=== PATIENT | male | born 1985 | race Caucasian/White ===

== ENCOUNTER 2017-11-10 19:11 | Inpatient (IN) ==
--- NOTE | 2017-11-10 19:39 | Emergency Department Note ---
Disposition Clinical Impression: Metabolic acidosis, Hyperphosphatemia, Hyponatremia Infected decubitus ulcer Qualifiers: Pressure ulcer stage: unspecified pressure ulcer stage Qualified Code(s): L89.90 - Pressure ulcer of unspecified site, unspecified stage Sepsis Qualifiers: Sepsis type: sepsis due to unspecified organism Qualified Code(s): A41.9 - Sepsis, unspecified organism Leukocytosis Qualifiers: Leukocytosis type: unspecified Qualified Code(s): D72.829 - Elevated white blood cell count, unspecified Osteomyelitis Qualifiers: Osteomyelitis type: unspecified type Osteomyelitis location: unspecified site Qualified Code(s): M86.9 - Osteomyelitis, unspecified Anemia Qualifiers: Anemia type: unspecified type Qualified Code(s): D64.9 - Anemia, unspecified Urinary tract infection Qualifiers: Urinary tract infection type: site unspecified Hematuria presence: without hematuria Qualified Code(s): N39.0 - Urinary tract infection, site not specified Malnutrition Qualifiers: Malnutrition type: unspecified type Qualified Code(s): E46 - Unspecified protein-calorie malnutrition Hypotension Qualifiers: Hypotension type: unspecified hypotension type Qualified Code(s): I95.9 - Hypotension, unspecified Disposition: Admitted As Inpatient Condition: Fair Referrals: NONE,PCP [Primary Care Provider] - Time of Disposition: 21:34 General Adult HPI - General Time Seen by Provider: 11/10/17 19:12 Source: family (), EMS Mode of arrival: EMS Limitations: altered mental status Nursing Notes Reviewed: Yes Vital Signs Reviewed: Yes - History of Present Illness HPI Narrative: 32-year-old male history of quadriplegia and CVA presents emergency department via EMS for confusion and abdominal wounds. 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 Denies any fevers at home. Denies any recent illness. He follows with Dr. Claudia edmonds at [facility] in [facility]. He is not been hospitalized recently. He is currently seeking multiple pain management doctors. He reports that patient's been unable to get a appropriate bed is currently he is on the bed without springs and it is very hard. On arrival here patient is alert and oriented only to self. Initially on arrival the patient refused to allow myself and medical staff to evaluate him. Reports by EMS he has significant bed wounds likely secondary to his immobility in history of paralysis. Shortly after his arrived. States that the wounds have been overwhelming. She does not have any home health assistance. Reports that he has been incontinent and has noticed urine coming out of his scrotum. He has extensive abdominal wounds with pus drainage and some necrotic tissue concerning for overwhelming wound infection. Patient has decreased sensation to is abdominal area. He is afebrile on examination. Tachycardic 120. Blood pressure is systolic 90 to 100. Patients very ill and will initiate septic workup with 2 large bore IV and likely central line placement. - Related Data Previous Rx's Medication Instructions Recorded Sulfamethoxazole/Trimeth DS 1 each PO BID #20 tablet 06/23/17 [Bactrim DS] Allergies Allergy/AdvReac Type Severity Reaction Status Date / Time sertraline [From Zoloft] Allergy See Verified 03/26/16 22:06 Comments All systems ED: reviewed and negative except as stated. Review of Systems: As Per HPI Constitutional: Reports: weakness, weight change. Denies: fever, chills ENT ED: Denies: congestion Cardiovascular: Denies: chest pain Respiratory: Denies: dyspnea Gastrointestinal: Reports: abdominal pain Past Medical History - Past Medical History Attestation: Yes The following information was validated with the patient. Source: old records reviewed, obtained from family Medical history: Reports: arthritis, myocardial infarction Surgical history: Reports: orthopedic, other, pacemaker/AICD Psychiatric history: Reports: anxiety, bipolar, depression, PTSD, other - Social History Smoking Status: Current every day smoker Smokeless Tobacco Status: No Alcohol use: Reports: none Drug use: Reports: none Physical Exam - General Limitations: altered mental status General appearance: alert, in no apparent distress, cachectic, other ( significant muscle wasting) - Head Head exam: atraumatic, normocephalic, normal inspection - Eye Eye exam: Present: normal appearance, PERRL, EOMI - ENT ENT exam: normal exam, normal oropharynx, mucous membranes dry, other (dry lips , pallor) - Expanded ENT Exam Teeth exam: Present: other (poor dentition) - Chest Chest inspection: Present: normal inspection, symmetric chest wall rise. Absent : tenderness - Respiratory Respiratory exam: Present: normal lung sounds bilaterally. Absent: respiratory distress - Cardiovascular Cardiovascular exam: Present: normal rhythm, tachycardia, normal heart sounds - Abdominal Exam Abdominal exam: Present: soft, tenderness (diffuse), other (extensive wounds to abdominal wall) - Extremities Exam Extremities exam: Present: other (muscle wasting, no heel ulceration, multiple ulcers to bony prominences ). Absent: tenderness - Back Exam Back exam: Present: other (multiple wound ) - Neurological Exam Neurological exam: Present: alert - Skin Skin exam: Present: erythema - Expanded Skin Exam Distribution: abdomen, genitals Description: Present: erythematous, crusting, discharge (purulent), fluctuant 1 - purulent drainage with necrotic tissue, no obvious crepitus but with deep palpation pus is expressed from skin 2 - DECUBITUS ULCER, EXPOSED BONE 3 - EXTENSIVE SACRAL DECUBITUS ULCER 4 - LARGE DECUBITUS ULCER OF RIGHT HIP EXPOSED MUSCLE TO MID THIGH 5 - MULTIPLE DECUBITUS ULCERS OF THE MEDIAL/LATERAL KNEES 6 - DECUBITUS PRESSURE ULCERS OF BILAT SCAPULA Course - Reevaluation(s) Reevaluation #1: Patient and continues to be hesitant on allowing us to evaluate him and treat him. Patient is very ill and this has been made apparent to both the patient and that he is critically ill. He is hypotensive and likely septic. He initially refused evaluation but since I am a male he allowed me to evaluate him with females outside of the room. He has extensive wounds with some crepitus and pus drainage to abdominal wall that extends down to the groin area. He is refusing machado catheter placement as well as additional IV access for resuscitative measures. He currently has a 20gauge IV in the left forearm. I discussed code status with the patient is as well as the and they have stated they do not want aggressive resuscitative measures such as CPR or intubation. He has been told by multiple physicians at [facility] that if he had CPR his chest would collapse and he has required tracheostomy as well. Patient is in agreement with this plan. He is currently receiving IV fluid through his left forearm IV and we will attempt to get additional IV access in a Machado catheter if the patient is not refusing. Patient's initially requested for him to be transferred to [facility] at this time they would prefer to stay here if possible. Time: 19:48 Reevaluation #2: Review of his labs he has a leukocytosis of 20. Hemoglobin 6.6. Will type and screen and transfused 2 units. His sodium is low. He has been fluid responsive to normal saline bolus 3 L now his systolic is up to 120. He has refused a central line. He is acidotic but abnormal lactate 1.2. We are able to place a Machado catheter in and send urinalysis. Urinalysis is consistent with urinary tract infection. We had extensive skin examination by fully exposing him he has multiple decubitus ulcers with concerns for osteomyelitis. He has bone exposed to his bilateral hips. He has extensive sacral decubitus ulcer as well as to the bilateral scapula and the performed mentioned abdominal wound. The Aliya gave us consent to obtain photographic images of the wounds. We have obtained appropriate cultures of most of the wounds with images and measurements. Patient will require extensive wound care as well as admission. He is appropriate for step down unit. We have covered him with broad-spectrum antibiotics vancomycin and Zosyn. Will obtain transfusion consent form. After code status discussion will have them sign a do not resuscitate comfort care arrest do not intubate form after our discussion. Impression is possible osteomyelitis, multiple decubitus ulcers, sepsis secondary to skin infection, urinary tract infection, anemia. Reevaluation #3: Given his extensive wounds will treated similar to burn patient. Patient is 45 kg and calculated likely 30% body surface area involvement. He has already received 3 L of normal saline and therefore aggressively resuscitated. Will place him on maintenance IV fluid 75 cc/hr. He continues to have adequate urine output. Patient's blood pressure continues to remain fluid responsive. Tachycardia has improved from 130s to 100. Significantly elevated ESR greater than 130 to suggest osteomyelitis. - Consultations Consultation #1: Spoke with on-call hospitalist yulissa Barroso to admit for urinary tract infection, sepsis, multiple ulcerations, possible osteomyelitis, hypotension responsive to fluid resuscitation, anemia requiring blood transfusion. No further orders at this time. The hospitalist was made aware of some of the concerns regarding the patient's well-being and care at home. 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 However with examination there is bone exposure that is inconsistent with that story. Will contact geriatric social work professor and have been evaluated the patient. We have taken photographic images of the wounds. When cultures have been sent as well. They may require adult protective services to intervene. Wound care and geriatric social work professor consultations have been placed. Vital Signs Temperature 97.8 F 11/10/17 19:39 Pulse Rate 127 11/10/17 19:39 Respiratory Rate 24 11/10/17 19:39 Blood Pressure 69/51 11/10/17 19:39 O2 Sat by Pulse Oximetry 100 11/10/17 19:39 Temperature 97.8 F 11/10/17 19:39 Pulse Rate 108 11/10/17 22:07 Respiratory Rate 24 11/10/17 22:07 Blood Pressure 100/65 11/10/17 22:07 O2 Sat by Pulse Oximetry 10 11/10/17 22:07 Oxygen Delivery Oxygen Delivery Non Rebreather Mask Medical Decision Making - MDM Narrative Medical decision making narrative: Patient was discussed with my attending physician who agrees with ED management and final disposition. They independently evaluated the patient. Please refer to their attestation to this encounter for additional information. This note was generated by [employer] voice recognition software and as a result grammatical or spelling errors may occur using this program. - Medical Records Medical records reviewed: Yes I reviewed the patient's medical records. - Lab Data Lab results reviewed: Yes I reviewed the patient's lab results. Result diagrams: 11/10/17 20:40 11/10/17 21:49 Lab Results 11/10/17 11/10/17 11/10/17 Range/Units 20:21 20:38 20:40 WBC 19.5 H (4.3-11.1) K/mcL RBC 3.14 L (4.19-5.50) M/mcL Hgb 6.6 L (12.9-16.9) g/dL Hct 23.4 L (37.5-50.1) % MCV 74.5 L (83.0-100.0) fL MCH 21.0 L (28.0-33.3) pg MCHC 28.2 L (31.6-35.5) g/dL RDW 17.4 H (11.5-14.5) % Plt Count 423 H (140-400) K/mcL MPV 10.1 (9.4-12.4) fL Immature Gran % 1.3 (0-4) % Seg Neutrophils % 80.2 % Lymphocytes % 11.1 % Monocytes % 6.2 % Eosinophils % 0.8 % Basophils % 0.4 % Neutrophils # 15.6 H (1.6-8.9) K/mcL Lymphocytes # 2.2 (0.6-4.6) K/mcL Monocytes # 1.2 (0.0-1.3) K/mcL Eosinophils # 0.2 (0.0-0.6) K/mcL Basophils # 0.1 (0.0-0.2) K/mcL Platelet Estimate Increased H (Normal) Hypochromasia Present A (Not Present) Poikilocytosis 1+ A (Not Present) Anisocytosis 1+ A (Not Present) Microcytosis Present A (Not Present) ESR (0-10) mm/hr PT (9.4-12.1) Seconds INR APTT (26.0-36.0) Seconds Sodium (136-145) mEq/L Potassium (3.5-5.1) mEq/L Chloride (98-107) mEq/L Carbon Dioxide (23-29) mEq/L BUN (6-20) mg/dL Creatinine (0.70-1.30) mg/dL Est GFR ( Amer) (> 60) Est GFR (Non-Af Amer) (> 60) BUN/Creatinine Ratio (6-26) Glucose (70-105) mg/dL Calculated Osmolality (280-300) Lactic Acid (0.5-2.2) mmol/L Calcium (8.6-10.3) mg/dL Phosphorus (2.7-4.5) mg/dL Magnesium (1.6-2.6) mg/dL Total Bilirubin (0.3-1.0) mg/dL Direct Bilirubin (0.0-0.2) mg/dL Indirect Bilirubin (0.0-1.2) mg/dL AST (13-39) Units/L ALT (7-52) Units/L Alkaline Phosphatase (34-104) Units/L Troponin I (< 0.04) ng/mL C-Reactive Protein (Less than 10) mg/L Serum Total Protein (6.4-8.9) g/dL Albumin (3.5-5.7) g/dL Globulin (2.4-3.5) g/dL Albumin/Globulin Ratio (1.1-2.2) Urine Color Dark Yellow (Yellow) Urine Clarity Cloudy A (Clear) Urine pH 7.0 (5.0-8.0) pH Units Ur Specific [place] 1.021 (1.010-1.025) Urine Protein 30 H (Neg-Trace) mg/dL Urine Glucose (UA) Normal (Normal) mg/dL Urine Ketones Negative (Negative) mg/dL Urine Blood Negative (Negative) Urine Nitrite Positive A (Negative) Urine Bilirubin Negative (Negative) Urine Urobilinogen Normal (Normal) mg/dL Ur Leukocyte Esterase Large H (Negative) Urine Microscopic RBC 5-15 H (0-3) per hpf Urine Microscopic WBC TNTC H (0-3) per hpf Ur Squamous Epith Cells None Seen (None-Few) per lpf Urine Bacteria Many H (None-Few) per hpf Hyaline Casts None Seen (None-Few) per lpf Ur Culture Indicated? YES A (NO) Blood Type A POSITIVE Antibody Screen NEGATIVE Crossmatch See Detail 11/10/17 11/10/17 11/10/17 Range/Units 20:40 20:40 20:40 WBC (4.3-11.1) K/mcL RBC (4.19-5.50) M/mcL Hgb (12.9-16.9) g/dL Hct (37.5-50.1) % MCV (83.0-100.0) fL MCH (28.0-33.3) pg MCHC (31.6-35.5) g/dL RDW (11.5-14.5) % Plt Count (140-400) K/mcL MPV (9.4-12.4) fL Immature Gran % (0-4) % Seg Neutrophils % % Lymphocytes % % Monocytes % % Eosinophils % % Basophils % % Neutrophils # (1.6-8.9) K/mcL Lymphocytes # (0.6-4.6) K/mcL Monocytes # (0.0-1.3) K/mcL Eosinophils # (0.0-0.6) K/mcL Basophils # (0.0-0.2) K/mcL Platelet Estimate (Normal) Hypochromasia (Not Present) Poikilocytosis (Not Present) Anisocytosis (Not Present) Microcytosis (Not Present) ESR (0-10) mm/hr PT 15.2 H (9.4-12.1) Seconds INR 1.4 APTT 27.6 (26.0-36.0) Seconds Sodium 129 L (136-145) mEq/L Potassium 4.4 (3.5-5.1) mEq/L Chloride 100 (98-107) mEq/L Carbon Dioxide 19 L (23-29) mEq/L BUN 30 H (6-20) mg/dL Creatinine 0.46 L (0.70-1.30) mg/dL Est GFR ( Amer) > 60 (> 60) Est GFR (Non-Af Amer) > 60 (> 60) BUN/Creatinine Ratio 65 H (6-26) Glucose 91 (70-105) mg/dL Calculated Osmolality 274 L (280-300) Lactic Acid 1.2 (0.5-2.2) mmol/L Calcium 8.9 (8.6-10.3) mg/dL Phosphorus 5.7 H (2.7-4.5) mg/dL Magnesium 1.7 (1.6-2.6) mg/dL Total Bilirubin 0.3 (0.3-1.0) mg/dL Direct Bilirubin 0.1 (0.0-0.2) mg/dL Indirect Bilirubin 0.2 (0.0-1.2) mg/dL AST 29 (13-39) Units/L ALT 41 (7-52) Units/L Alkaline Phosphatase 221 H (34-104) Units/L Troponin I 0.03 (< 0.04) ng/mL C-Reactive Protein 232 H (Less than 10) mg/L Serum Total Protein 5.9 L (6.4-8.9) g/dL Albumin 2.1 L (3.5-5.7) g/dL Globulin 3.8 H (2.4-3.5) g/dL Albumin/Globulin Ratio 0.6 L (1.1-2.2) Urine Color (Yellow) Urine Clarity (Clear) Urine pH (5.0-8.0) pH Units Ur Specific [place] (1.010-1.025) Urine Protein (Neg-Trace) mg/dL Urine Glucose (UA) (Normal) mg/dL Urine Ketones (Negative) mg/dL Urine Blood (Negative) Urine Nitrite (Negative) Urine Bilirubin (Negative) Urine Urobilinogen (Normal) mg/dL Ur Leukocyte Esterase (Negative) Urine Microscopic RBC (0-3) per hpf Urine Microscopic WBC (0-3) per hpf Ur Squamous Epith Cells (None-Few) per lpf Urine Bacteria (None-Few) per hpf Hyaline Casts (None-Few) per lpf Ur Culture Indicated? (NO) Blood Type Antibody Screen Crossmatch 11/10/17 11/10/17 Range/Units 20:40 21:49 WBC (4.3-11.1) K/mcL RBC (4.19-5.50) M/mcL Hgb (12.9-16.9) g/dL Hct (37.5-50.1) % MCV (83.0-100.0) fL MCH (28.0-33.3) pg MCHC (31.6-35.5) g/dL RDW (11.5-14.5) % Plt Count (140-400) K/mcL MPV (9.4-12.4) fL Immature Gran % (0-4) % Seg Neutrophils % % Lymphocytes % % Monocytes % % Eosinophils % % Basophils % % Neutrophils # (1.6-8.9) K/mcL Lymphocytes # (0.6-4.6) K/mcL Monocytes # (0.0-1.3) K/mcL Eosinophils # (0.0-0.6) K/mcL Basophils # (0.0-0.2) K/mcL Platelet Estimate (Normal) Hypochromasia (Not Present) Poikilocytosis (Not Present) Anisocytosis (Not Present) Microcytosis (Not Present) ESR >= 130 H (0-10) mm/hr PT (9.4-12.1) Seconds INR APTT (26.0-36.0) Seconds Sodium 131 L (136-145) mEq/L Potassium 4.1 (3.5-5.1) mEq/L Chloride 105 (98-107) mEq/L Carbon Dioxide 17 L (23-29) mEq/L BUN 27 H (6-20) mg/dL Creatinine 0.42 L (0.70-1.30) mg/dL Est GFR ( Amer) > 60 (> 60) Est GFR (Non-Af Amer) > 60 (> 60) BUN/Creatinine Ratio 64 H (6-26) Glucose 80 (70-105) mg/dL Calculated Osmolality 276 L (280-300) Lactic Acid (0.5-2.2) mmol/L Calcium 8.3 L (8.6-10.3) mg/dL Phosphorus (2.7-4.5) mg/dL Magnesium (1.6-2.6) mg/dL Total Bilirubin (0.3-1.0) mg/dL Direct Bilirubin (0.0-0.2) mg/dL Indirect Bilirubin (0.0-1.2) mg/dL AST (13-39) Units/L ALT (7-52) Units/L Alkaline Phosphatase (34-104) Units/L Troponin I (< 0.04) ng/mL C-Reactive Protein (Less than 10) mg/L Serum Total Protein (6.4-8.9) g/dL Albumin (3.5-5.7) g/dL Globulin (2.4-3.5) g/dL Albumin/Globulin Ratio (1.1-2.2) Urine Color (Yellow) Urine Clarity (Clear) Urine pH (5.0-8.0) pH Units Ur Specific [place] (1.010-1.025) Urine Protein (Neg-Trace) mg/dL Urine Glucose (UA) (Normal) mg/dL Urine Ketones (Negative) mg/dL Urine Blood (Negative) Urine Nitrite (Negative) Urine Bilirubin (Negative) Urine Urobilinogen (Normal) mg/dL Ur Leukocyte Esterase (Negative) Urine Microscopic RBC (0-3) per hpf Urine Microscopic WBC (0-3) per hpf Ur Squamous Epith Cells (None-Few) per lpf Urine Bacteria (None-Few) per hpf Hyaline Casts (None-Few) per lpf Ur Culture Indicated? (NO) Blood Type Antibody Screen Crossmatch - Radiology Data Radiology results reviewed: Yes I reviewed the patient's radiology results. Chest X-Ray 11/10/17 19:32 IMPRESSION: No acute cardiopulmonary process. D/ / Modesto Aguirre MD / Modesto Aguirre MD Interpreting Provider: Modesto Aguirre MD Critical Care Time Critical Care Time: Yes Total Critical Care Time: 60 Attestation: The high probability of a clinically significant, sudden or life threatening deterioration of the [cardiovascular, skin, ] system(s) required my full and direct attention, intervention and personal management. The aggregate critical care time was [60] minutes. This time is in addition to time spent performing reported procedures but includes the following: [X] Data Review and interpretation [X] Patient assessment and monitoring of vital signs [X] Documentation [X] Medication orders and management
[2017-11-10] MEDS ORDERED: 0.9 % Sodium Chloride 3,000 ML ONE (19:55)
[2017-11-10] MEDS: 0.9 % Sodium Chloride 1,000 ML IVC SCH ×2 (20:12→21:10)
[2017-11-10] MEDS: Piperacillin/Tazobactam 3.375 GM in 0.9 % Sodium Chloride Mini Bag 100 ML IVPB ONE ×2 (20:12→21:09)
[2017-11-10 20:51] LABS: Eosinophils % 0.8 %; Mean Platelet Volume 10.1 fL (9.4-12.4)
[2017-11-10 20:53] LABS: Basophils # 0.1 K/mcL (0.0-0.2); Basophils % 0.4 %; Eosinophils # 0.2 K/mcL (0.0-0.6); Hematocrit 23.4 % (37.5-50.1); Immature Granulocytes % 1.3 % (0-4); Lymphocytes # 2.2 K/mcL (0.6-4.6); Lymphocytes % 11.1 %; Mean Corpuscular HGB Conc 28.2 g/dL (31.6-35.5); Mean Corpuscular Volume 74.5 fL (83.0-100.0); Monocytes # 1.2 K/mcL (0.0-1.3); Monocytes % 6.2 %; Neutrophils # 15.6 K/mcL (1.6-8.9); Platelet Count 423 K/mcL (140-400); Red Blood Count 3.14 M/mcL (4.19-5.50); Red Cell Distribution Width 17.4 % (11.5-14.5); Segmented Neutrophils % 80.2 %
[2017-11-10 20:57] LABS: INR 1.4; Prothrombin Time 15.2 Seconds (9.4-12.1)
[2017-11-10 21:00] LABS: Activated Partial Thrombo Time 27.6 Seconds (26.0-36.0)
[2017-11-10 21:09] LABS: Hemoglobin 6.6 g/dL (12.9-16.9)
[2017-11-10 21:12] LABS: Anisocytosis 1+ (Not Present); Hypochromasia Present (Not Present); Microcytosis Present (Not Present); Platelet Estimate Increased (Normal); Poikilocytosis 1+ (Not Present)
[2017-11-10 21:13] LABS: Alanine Aminotransferase 41 Units/L (7-52); Albumin 2.1 g/dL (3.5-5.7); Albumin/Globulin Ratio 0.6 (1.1-2.2); Alkaline Phosphatase 221 Units/L (34-104); Aspartate Amino Transferase 29 Units/L (13-39); BUN/Creatinine Ratio 65 (6-26); Bilirubin,Direct 0.1 mg/dL (0.0-0.2); Bilirubin,Indirect 0.2 mg/dL (0.0-1.2); Bilirubin,Total 0.3 mg/dL (0.3-1.0); Blood Urea Nitrogen 30 mg/dL (6-20); Calcium 8.9 mg/dL (8.6-10.3); Carbon Dioxide 19 mEq/L (23-29); Chloride 100 mEq/L (98-107); Globulin 3.8 g/dL (2.4-3.5); Glucose 91 mg/dL (70-105); Magnesium 1.7 mg/dL (1.6-2.6); Osmolality,Calculated 274 (280-300); Phosphorous 5.7 mg/dL (2.7-4.5); Potassium 4.4 mEq/L (3.5-5.1); Sodium 129 mEq/L (136-145); Total Protein 5.9 g/dL (6.4-8.9); Troponin I 0.03 ng/mL (< 0.04); eGFR For African Americans > 60 (> 60); eGFR For Non-African Americans > 60 (> 60)
[2017-11-10 21:27] LABS: Bilirubin,Urine Negative (Negative); Blood,Urine Negative (Negative); Clarity,Urine Cloudy (Clear); Color,Urine Dark Yellow (Yellow); Glucose,Urine (UA) Normal (Normal); Ketones,Urine Negative (Negative); Leukocyte Esterase,Urine Large (Negative); Nitrite,Urine Positive (Negative); Protein,Urine 30 mg/dL (Neg-Trace); Specific Gravity,Urine 1.021 (1.010-1.025); Urobilinogen,Urine Normal (Normal)
[2017-11-10 21:30] LABS: Bacteria,Urine Many per hpf (None-Few); Hyaline Casts,Urine None Seen per lpf (None-Few); Squamous Epithelial Cell,Urine None Seen per lpf (None-Few); WBC,Urine TNTC per hpf (0-3)
[2017-11-10 21:37] LABS: C-Reactive Protein 232 mg/L (Less than 10)
[2017-11-10 22:24] LABS: BUN/Creatinine Ratio 64 (6-26); Blood Urea Nitrogen 27 mg/dL (6-20); Calcium 8.3 mg/dL (8.6-10.3); Carbon Dioxide 17 mEq/L (23-29); Chloride 105 mEq/L (98-107); Glucose 80 mg/dL (70-105); Osmolality,Calculated 276 (280-300); Potassium 4.1 mEq/L (3.5-5.1); Sodium 131 mEq/L (136-145); eGFR For African Americans > 60 (> 60); eGFR For Non-African Americans > 60 (> 60)
[2017-11-10] MEDS ORDERED: *HR* FentaNYL (PF) 100 MCG/2 ML VIAL IVP ONE (23:06)
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
[2017-11-11] MEDS: 0.9 % Sodium Chloride 1,000 ML IVC SCH ×2 (00:36→11:25)
[2017-11-11] MEDS ORDERED: 0.9 % Sodium Chloride 250 ML ONE (01:58)
[2017-11-11] MEDS ORDERED: *HR* OxyCODONE Immed Rel 5 MG TABLET PO PRN ×2 (02:02→15:13)
[2017-11-11] MEDS ORDERED: Acetaminophen 325 MG TABLET PO PRN (02:02)
[2017-11-11] MEDS ORDERED: Naloxone 0.4 MG/ML INJ IVP PRN (02:02)
[2017-11-11] MEDS ORDERED: traMADol 50 MG TABLET PO PRN (02:02)
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
[2017-11-11] MEDS ORDERED: 0.9 % Sodium Chloride 1,000 ML IVC ONE ×2 (02:28→03:06)
[2017-11-11] MEDS ORDERED: Vancomycin (wt based) 1,000 MG VIAL IVPB SCH (03:00)
[2017-11-11] MEDS: Ringers Solution, Lactated 1,000 ML IVC SCH ×2 (03:08→10:57)
[2017-11-11] MEDS: *HR* Heparin 5,000 UNIT/ML VIAL SQ SCH ×2 (05:53→10:40)
[2017-11-11 07:50] LABS: BUN/Creatinine Ratio 61 (6-26); Blood Urea Nitrogen 22 mg/dL (6-20); Calcium 7.7 mg/dL (8.6-10.3); Carbon Dioxide 16 mEq/L (23-29); Chloride 111 mEq/L (98-107); Glucose 88 mg/dL (70-105); Magnesium 1.5 mg/dL (1.6-2.6); Osmolality,Calculated 281 (280-300); Phosphorous 3.7 mg/dL (2.7-4.5); Potassium 3.6 mEq/L (3.5-5.1); Sodium 134 mEq/L (136-145); eGFR For African Americans > 60 (> 60); eGFR For Non-African Americans > 60 (> 60)
[2017-11-11 08:04] LABS: % Iron Saturation 16 % (20-55); Ferritin 455 ng/ml (20-250); Iron 23 mcg/dL (65-175); Transferrin 101 mg/dL (203-362)
[2017-11-11 08:15] LABS: Folate 13.3 ng/mL (3.0-16.0)
[2017-11-11 08:17] LABS: Vitamin B12 > 1500 pg/mL (250-1100)
[2017-11-11 08:31] LABS: Basophils # 0.1 K/mcL (0.0-0.2); Basophils % 0.4 %; Eosinophils # 0.2 K/mcL (0.0-0.6); Eosinophils % 1.5 %; Immature Granulocytes % 0.8 % (0-4); Lymphocytes # 2.5 K/mcL (0.6-4.6); Lymphocytes % 18.1 %; Mean Corpuscular HGB Conc 29.6 g/dL (31.6-35.5); Mean Corpuscular Hemoglobin 23.4 pg (28.0-33.3); Mean Corpuscular Volume 79.1 fL (83.0-100.0); Mean Platelet Volume 10.2 fL (9.4-12.4); Monocytes # 0.7 K/mcL (0.0-1.3); Neutrophils # 10.1 K/mcL (1.6-8.9); Platelet Count 344 K/mcL (140-400); Red Blood Count 3.54 M/mcL (4.19-5.50); Red Cell Distribution Width 18.3 % (11.5-14.5); Segmented Neutrophils % 74.2 %
[2017-11-11] MEDS: Piperacillin/Tazobactam 3.375 GM in 0.9 % Sodium Chloride Mini Bag 100 ML IVPB SCH ×2 (08:56→16:02)
[2017-11-11 08:57] LABS: Hemoglobin 8.3 g/dL (12.9-16.9)
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
--- NOTE | 2017-11-11 14:43 | Event Note ---
Date of Encounter: 11/11/17 Time of Encounter: 12:00 Pt seen with attending (Dr. Moran) and resident (Dr. Moreno). Please see resident note for full description of wounds and consult to follow. Patient is with multiple decubitus ulcers. He has not been evaluated in any wound care as sense 2015. He initially refuses surgery to evaluate him but his visitor was able to convince him. She states the family is requesting transfer to [facility] for further evaluation and care and surgery agrees this is reasonable. Please see local wound care orders below in the meantime. Daily wound care: Decubitus ulcers on back (with eschar): apply santyl matt thick. Cover with saline soaked 4 x 4. Cover with a dry dressing. BL knees, hips, and sacrum: pack/lay 4 x 4 or Kerlix soaked in Dakin solution. Cover with a dry dressing. BL groin: cleanse with hibbiclens or equivalent. Keep folded ABD pads in groin at all times to keep area dry.
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
[2017-11-11] MEDS ORDERED: *HR* OxyCODONE/APAP 7.5/325 TABLET PO PRN (15:12)
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
[2017-11-11] MEDS ORDERED: Ringers Solution, Lactated 1,000 ML IVC SCH (19:00)
[2017-11-11 20:52] VITALS: BP 70/39
[2017-11-11] MEDS ORDERED: Mirtazapine 15 MG TABLET PO SCH (21:00)
[2017-11-11] MEDS ORDERED: Ascorbic Acid 500 MG TABLET PO SCH (21:00)
[2017-11-11 21:04] LABS: Enterococcus by PCR Not Detected (Not Detect); blaKPC Carbapenem-Resist Gene Not Detected (Not Detect); mecA Methicillin-Resist Gene ***DETECTED*** (Not Detect); vanA/B Vancomycin-Resist Genes Not Detected (Not Detect)
[2017-11-11 21:05] LABS: Acinetobacter baumannii by PCR Not Detected (Not Detect); Candida albicans by PCR Not Detected (Not Detect); Candida glabrata by PCR Not Detected (Not Detect); Candida krusei by PCR Not Detected (Not Detect); Candida parapsilosis by PCR Not Detected (Not Detect); Candida tropicalis by PCR Not Detected (Not Detect); Escherichia coli by PCR Not Detected (Not Detect); Klebsiella oxytoca by PCR Not Detected (Not Detect); Klebsiella pneumoniae by PCR Not Detected (Not Detect); Pseudomonas aeruginosa by PCR Not Detected (Not Detect); Serratia marcescens by PCR Not Detected (Not Detect); Staphylococcus aureus by PCR Not Detected (Not Detect); Streptococcus agalactiae(B)PCR Not Detected (Not Detect); Streptococcus by PCR Not Detected (Not Detect); Streptococcus pneumoniae PCR Not Detected (Not Detect); Streptococcus pyogenes (A) PCR Not Detected (Not Detect)
[2017-11-11] MEDS ORDERED: Aminoglycoside Consult 1 EACH MC ONE (21:49)
[2017-11-12 14:46] LABS: Acinetobacter baumannii by PCR Not Detected (Not Detect); Candida albicans by PCR Not Detected (Not Detect); Candida glabrata by PCR Not Detected (Not Detect); Candida krusei by PCR Not Detected (Not Detect); Candida parapsilosis by PCR Not Detected (Not Detect); Candida tropicalis by PCR Not Detected (Not Detect); Enterococcus by PCR Not Detected (Not Detect); Escherichia coli by PCR Not Detected (Not Detect); Klebsiella oxytoca by PCR Not Detected (Not Detect); Klebsiella pneumoniae by PCR Not Detected (Not Detect); Pseudomonas aeruginosa by PCR Not Detected (Not Detect); Serratia marcescens by PCR Not Detected (Not Detect); Staphylococcus aureus by PCR Not Detected (Not Detect); Streptococcus agalactiae(B)PCR Not Detected (Not Detect); Streptococcus by PCR Not Detected (Not Detect); Streptococcus pneumoniae PCR Not Detected (Not Detect); Streptococcus pyogenes (A) PCR Not Detected (Not Detect); blaKPC Carbapenem-Resist Gene Not Detected (Not Detect); mecA Methicillin-Resist Gene Not Detected (Not Detect); vanA/B Vancomycin-Resist Genes Not Detected (Not Detect)
--- NOTE | 2017-11-12 16:31 | Electrocardiograph Report ---
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
[2017-11-12] MEDS ORDERED: Zinc Sulfate 220 MG CAPSULE PO SCH (21:00)
== END 2017-11-11 21:50 | disposition short-term general hospital (02) | DRG 720 ==
LOC: EMEROO 19:11 → SUATTDRO 22:58 → 2NNU 22:58
PROVIDERS: ADMIT Internal Medicine; ATTEND Internal Medicine